=== PATIENT | male | born 1970 | race Caucasian/White ===

== ENCOUNTER 2019-06-03 15:57 | Emergency (ER) | payer SELFPAY ==
[~2019-06-03] VITALS: Ht 180.3 cm; Wt 81.8 kg
[2019-06-03 16:27] VITALS: Ht 180.3 cm; Wt 81.8 kg
[2019-06-03] MEDS ORDERED: AUGMENTIN 875-11 TAB PO (17:21)
[2019-06-03] MEDS ORDERED: ZESTRIL10 MG PO (17:21)
[2019-06-03 17:33] VITALS: BP 196/102
== END 2019-06-03 17:30 | disposition home or self-care (01) ==
LOC: D.ER 15:57
DX: J01.90 Acute sinusitis, unspecified (principal); I10 Essential (primary) hypertension

== ENCOUNTER 2019-07-19 13:30 | Inpatient (IN) | payer MEDICAID ==
[~2019-07-19] VITALS: Ht 180.3 cm; Wt 81.5 kg
[2019-07-19] VITALS (24 sets, daily range): BP systolic 118–222; BP diastolic 64–111; Ht 180.3 cm; Wt 81.5 kg
[~2019-07-19 13:30] MED LIST: AUGMENTIN 875-11 TAB PO; ZESTRIL10 MG PO
[2019-07-19 14:42] LABS: CALC OSMOLALITY 275 mosm/kg (275-300); CALCIUM 9.1 mg/dL (8.5-10.1); CARBON DIOXIDE 29.5 mmol/L (21.0-32.0); CHLORIDE - SERUM 103 mmol/L (98-107); CREATININE - SERUM 0.8 mg/dL (0.6-1.3); GLUCOSE 89 mg/dL (74-106); POTASSIUM - SERUM 3.9 mmol/L (3.5-5.1); SODIUM 139 mmol/L (136-145); UREA NITROGEN 11 mg/dL (7-18); eGFR NON AFRICAN AMERICAN > 90 mL/min (90-120)
[2019-07-19 14:47] LABS: BASOPHILS 0.4 % (0-2); EOSINOPHILS 1.1 % (0-7); HEMATOCRIT 39.7 % (42.0-54.0); HEMOGLOBIN 14.1 g/dL (13.5-17.5); IMMATURE GRANULOCYTES 0.3 % (0-5); LYMPHOCYTES 33.1 % (15-50); MCH 31.8 pg (26.0-34.0); MCHC 35.5 g/dL (31.0-37.0); MCV 89.4 fL (80.0-100.0); MEAN PLATELET VOLUME 9.9 fL (7.4-10.4); MONOCYTES 5.2 % (2-11); NEUTROPHILS 59.9 % (40-80); PLATELET COUNT 215 10x3/uL (130-400); RBC 4.44 10x6/uL (4.20-6.10); RDW 13.2 % (11.5-14.5); WBC 9.3 10x3/uL (4.8-10.8)
[2019-07-19 14:49] LABS: ALBUMIN 4.1 g/dL (3.4-5.0); ALKALINE PHOSPHATASE 73 U/L (46-116); ALT (SGPT) 30 U/L (10-68); BILIRUBIN - TOTAL 0.34 mg/dL (0.2-1.3); MAGNESIUM - SERUM 1.9 mg/dL (1.8-2.4); PROTEIN - SERUM 7.8 g/dL (6.4-8.2)
[2019-07-19 15:09] LABS: UDS - AMPHET NEGATIVE QUAL (NEGATIVE); UDS - BARB NEGATIVE QUAL (NEGATIVE); UDS - BENZO NEGATIVE QUAL (NEGATIVE); UDS - COCAINE NEGATIVE QUAL (NEGATIVE); UDS - OPIATE NEGATIVE QUAL (NEGATIVE); UDS - PCP NEGATIVE QUAL (NEGATIVE); UDS - THC NEGATIVE QUAL (NEGATIVE)
[2019-07-19 15:10] LABS: APPEARANCE CLEAR (CLEAR); BILIRUBIN NEGATIVE (NEGATIVE); COLOR YELLOW (YELLOW); GLUCOSE NEGATIVE (NEGATIVE); KETONE NEGATIVE (NEGATIVE); NITRITE NEGATIVE (NEGATIVE); PROTEIN NEGATIVE (NEGATIVE); UROBILINOGEN NORMAL (NORMAL)
[2019-07-19 15:30] LABS: APTT 41.8 SECONDS (22.8-39.4); INR 0.96 (0.85-1.17); PROTIME 12.3 SECONDS (11.6-15.0)
[2019-07-19 15:47] LABS: CKMB 0.9 U/L (0.0-3.6); CREATINE KINASE 80 UL (21-232)
[2019-07-19 15:48] LABS: TROPONIN-I < 0.017 ng/mL (0.000-0.060)
--- NOTE | 2019-07-19 18:27 | NUR ---
PT RECEIVED TO ROOM. ALERT ORIENTED, CONVERSANT. AMBULATORY AND STEADY. ON CARDINE GTT. PLACED ON BEDSIDE MONITORING. PROVIDED WITH SANDWICH
--- NOTE | 2019-07-19 19:00 | NUR ---
REPORT RECIEVED, SHIFT ASSESSMENT COMPLETE, PT IS ALERT AND ORIENTED, HAVING AUDITORY HALLUCINATIONS, ALL PPP, VSS, CALL LIGHT IN REACH
--- NOTE | 2019-07-19 21:00 | NUR ---
NO VISITORS AT THIS TIME, WILL CON'T TO MONITOR
--- NOTE | 2019-07-19 23:15 | NUR ---
REASSESSMENT COMPLETE, NO CHANGES NOTED, PT RESTING COMFORTABLY AT THIS TIME,
[2019-07-20] VITALS (17 sets, daily range): BP systolic 116–167; BP diastolic 64–96
--- NOTE | 2019-07-20 01:00 | NUR ---
PT RESTING AT THIS TIME, WILL CON'T TO MONITOR
--- NOTE | 2019-07-20 03:09 | NUR ---
REASSESSMENT COMPLETE, NO CHANGES NOTED, WILL CON'T TO MONITOR
[2019-07-20 03:57] LABS: BASOPHILS 0.3 % (0-2); EOSINOPHILS 1.9 % (0-7); HEMATOCRIT 39.9 % (42.0-54.0); HEMOGLOBIN 13.9 g/dL (13.5-17.5); IMMATURE GRANULOCYTES 0.2 % (0-5); LYMPHOCYTES 30.9 % (15-50); MCH 31.4 pg (26.0-34.0); MCHC 34.8 g/dL (31.0-37.0); MCV 90.1 fL (80.0-100.0); MEAN PLATELET VOLUME 10.1 fL (7.4-10.4); MONOCYTES 7.5 % (2-11); NEUTROPHILS 59.2 % (40-80); PLATELET COUNT 216 10x3/uL (130-400); RBC 4.43 10x6/uL (4.20-6.10); RDW 13.2 % (11.5-14.5); WBC 9.6 10x3/uL (4.8-10.8)
[2019-07-20 04:23] LABS: ALBUMIN 3.8 g/dL (3.4-5.0); ALKALINE PHOSPHATASE 69 U/L (46-116); ALT (SGPT) 27 U/L (10-68); BILIRUBIN - TOTAL 0.36 mg/dL (0.2-1.3); CALC OSMOLALITY 283 mosm/kg (275-300); CALCIUM 9.1 mg/dL (8.5-10.1); CHLORIDE - SERUM 105 mmol/L (98-107); GLUCOSE 87 mg/dL (74-106); POTASSIUM - SERUM 3.5 mmol/L (3.5-5.1); PRO BNP 95 pg/mL (0-125); PROTEIN - SERUM 7.2 g/dL (6.4-8.2); SODIUM 142 mmol/L (136-145); eGFR NON AFRICAN AMERICAN 84 mL/min (90-120)
[2019-07-20 04:30] LABS: UREA NITROGEN 17 mg/dL (7-18)
--- NOTE | 2019-07-20 05:20 | NUR ---
PT RESTING AT THIS TIME, VSS, CALL LIGHT IN REACH
--- NOTE | 2019-07-20 07:32 | NUR ---
PT SLEEPING AT SHIFT CHANGE/ASSESSMENT. WOKE TO TOUCH. DOES NOT HAVE HEARING AIDS IN. DENIES PAIN. VSS. OFF CARDENE GTT.
--- NOTE | 2019-07-20 09:18 | NUR ---
PT RESTING IN BED AT THIS TIME. BREAKFAST TRAY CONSUMED. PT DENIES ANY ADDITIONAL NEEDS. CALL LIGHT IN REACH.
--- NOTE | 2019-07-20 10:54 | NUR ---
PT HOME MEDICATION AND PHARMACY PREFERENCE UDATED. PT SAYS DOESN'T HAVE REGULAR MAINTENANCE MEDICATIONS, JUST WHATEVER THE DOCTOR PRESCRIBES WHEN COMES IN FOR HIGH BLOOD PRESSURE.
--- NOTE | 2019-07-20 13:40 | NUR ---
PT RESTING QUIETLY IN BED WATCHING TELEVISION.
--- NOTE | 2019-07-20 14:25 | NUR ---
PT ESCORTED VIA WHEELCHAIR TO ROOM 2123. PT HAS HIS WALLET AND BOTH HEARING AIDS.
--- NOTE | 2019-07-20 14:27 | NUR ---
ARRIVE TO ROOM VIA WHEELCHAIR FROM ICU. AMBULATES TO BED. GAIT STEADY. BP-167/91. ALERT AND ORIENTED X4. REQUESTING TO TAKE SHOWER. CONTINUE PLAN OF CARE AND SAFETY PRECAUTIONS.
--- NOTE | 2019-07-20 14:42 | MORECARE ---
CASE MANAGEMENT DISCHARGE SUMMARY PATIENT: KELSY PALOMARES UNIT: [id number] ADM DATE: 07/19/19 AGE: 48 : 68 SEX: M ROOM/BED: D.2124 AUTHOR: TOVA,DOC PHYSICIAN: REFERRING PHYSICIAN: MCKINLEY MARIE MD DATE OF SERVICE: 07/20/19 Discharge Plan Patient Name: KELSY PALOMARES Facility: [facility]:[place] : 1970 Planned Disposition: Anticipated Discharge Date: Discharge Date: Expected LOS: Initial Reviewer: [email or web address] Initial Review Date: 07/20/2019 Generated: 07/20/19 3:42 pm Comments DCP- Discharge Planning Updated by [email or web address]: Gosia Rivera on 07/20/19 1:[address] Patient Name: KELSY PALOMARES Admission Status: ER Accout number: [id number] Admission Date: 07-19-2019 : 1970 Admission Diagnosis: Attending: MCKINLEY MARIE Current LOS: 1 Anticipated DC Date: Planned Disposition: Primary Insurance: MEDICAID [place] Discharge Planning Comments: CM met with patient he plans to return to rehab [facility] with Daniella Suarez [phone]. Patient denies any discharge needs. CM will continue to follow and assist as needed with discharge planning / needs Automation Tender: Gosia Rivera DCPIA - Discharge Planning Initial Assessment Updated by [email or web address]: Gosia Rivera on 07/20/19 2:37 pm * Is the patient Alert and Oriented? Yes * How many steps to enter\exit or inside your home? * PCP NO PCP * Pharmacy [facility] * Preadmission Environment Shelter * ADLs Independent * List name and contact numbers for known caregivers / representatives who currently or will assist patient after discharge: DANIELLA SUAREZ - [phone] * Verbal permission to speak to the caregivers and representatives has been obtained from the patient. Yes * Community resources currently utilized None * Additional services required to return to the preadmission environment? No * Can the patient safely return to the preadmission environment? Yes * Has this patient been hospitalized within the prior 30 days at any hospital? No Patient Name: KELSY PALOMARES Page [id number] at 1442 All edits/amendments must be made on the electronic document DICTATION DATE: 07/20/191441 PORTAINER OPERATOR: MANISH 07/20/191441 RPT#: [id number] DC DATE: STATUS: ADM IN [facility] [address] [place] [address] END OF REPORT
--- NOTE | 2019-07-20 19:22 | NUR ---
RECEIVED UP IN BED WITH EYES OPEN AND TV ON. ALERT AND ORIENTED X4. UP AD MARGIE. IV TO LEFT AC SL.. LUNG SOUNDS CLEAR BILATERALLY. [place] AND WEARS HEARING AIDS BILATERALLY. DENIES ANY NEEDDS AT THIS TIME.
[2019-07-21] VITALS: BP 144/84
[2019-07-21 04:00] VITALS: BP 180/88
[2019-07-21 06:25] LABS: BASOPHILS 0.4 % (0-2); EOSINOPHILS 2.9 % (0-7); HEMATOCRIT 37.6 % (42.0-54.0); HEMOGLOBIN 12.8 g/dL (13.5-17.5); IMMATURE GRANULOCYTES 0.1 % (0-5); MCH 30.9 pg (26.0-34.0); MCV 90.8 fL (80.0-100.0); MEAN PLATELET VOLUME 10.2 fL (7.4-10.4); NEUTROPHILS 47.6 % (40-80); PLATELET COUNT 200 10x3/uL (130-400); RBC 4.14 10x6/uL (4.20-6.10); RDW 13.4 % (11.5-14.5); WBC 8.6 10x3/uL (4.8-10.8)
[2019-07-21 06:38] LABS: CALC OSMOLALITY 291 mosm/kg (275-300); CALCIUM 8.4 mg/dL (8.5-10.1); CARBON DIOXIDE 28.5 mmol/L (21.0-32.0); CHLORIDE - SERUM 109 mmol/L (98-107); CREATININE - SERUM 0.9 mg/dL (0.6-1.3); GLUCOSE 87 mg/dL (74-106); MAGNESIUM - SERUM 1.9 mg/dL (1.8-2.4); SODIUM 145 mmol/L (136-145); eGFR NON AFRICAN AMERICAN > 90 mL/min (90-120)
[2019-07-21 06:40] LABS: UREA NITROGEN 23 mg/dL (7-18)
--- NOTE | 2019-07-21 07:25 | NUR ---
ASSESSMENT DONE. DENIES NEEDS
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
[2019-07-21 08:42] VITALS: BP 145/69
[2019-07-21] MEDS ORDERED: SEROQUEL25 MG PO (09:43)
--- NOTE | 2019-07-21 10:04 | NUR ---
PATIENT HAS NOT HAD A FLU SHOT UPON ADMIT. WHEN ASKED, HE STATES HE WOULD LIKE ONE. ALSO, TOBACCO QUITLINE GIVEN TO NURSE TO HAVE PATIENT FILL OUT UPON DISCHARGE.
--- NOTE | 2019-07-21 13:50 | NUR ---
DC GIVEN TO PT
[2019-07-21 14:05] VITALS: BP 179/97
--- NOTE | 2019-07-21 15:25 | NUR ---
DC HOME PERSONAL CAR
--- NOTE | 2019-07-22 07:08 | MORECARE ---
CASE MANAGEMENT DISCHARGE SUMMARY PATIENT: KELSY PALOMARES UNIT: [id number] ADM DATE: 07/19/19 AGE: 48 : 68 SEX: M ROOM/BED: D.2124 AUTHOR: TOVA,DOC PHYSICIAN: REFERRING PHYSICIAN: MCKINLEY MARIE MD DATE OF SERVICE: 07/22/19 Discharge Plan Patient Name: KELSY PALOMARES Facility: [facility]:[place] : 1970 Planned Disposition: Home Anticipated Discharge Date: 07/21/19 Discharge Date: 07/21/2019 Expected LOS: 2 Initial Reviewer: [email or web address] Initial Review Date: 07/20/2019 Generated: 07/22/19 8:08 am Comments DCP- Discharge Planning Updated by [email or web address]: Gosia Rivera on 07/20/19 1:[address] Patient Name: KELSY PALOMARES Admission Status: ER Accout number: [id number] Admission Date: 07-19-2019 : 1970 Admission Diagnosis: Attending: MCKINLEY MARIE Current LOS: 1 Anticipated DC Date: Planned Disposition: Primary Insurance: MEDICAID [place] Discharge Planning Comments: CM met with patient he plans to [facility] with Daniella Suarez [phone]. Patient denies any discharge needs. CM will continue to follow and assist as needed with discharge planning / needs Staff Technologist: Gosia Rivera DCPIA - Discharge Planning Initial Assessment Updated by [email or web address]: Gosia Rivera on 07/20/19 2:37 pm * Is the patient Alert and Oriented? Yes * How many steps to enter\exit or inside your home? * PCP NO PCP * Pharmacy [facility] * Preadmission Environment Longterm * ADLs Independent * List name and contact numbers for known caregivers / representatives who currently or will assist patient after discharge: DANIELLA SUAREZ - [phone] * Verbal permission to speak to the caregivers and representatives has been obtained from the patient. Yes * Community resources currently utilized None * Additional services required to return to the preadmission environment? No * Can the patient safely return to the preadmission environment? Yes * Has this patient been hospitalized within the prior 30 days at any hospital? No Last DP export: 07/20/19 1:42 Patient Name: KELSY PALOMARES Page 96024 at 0708 All edits/amendments must be made on the electronic document DICTATION DATE: 07/22/19707 PHOTOVOLTAIC INSTALLER: MANISH 07/22/1908 RPT#: [id number] DC DATE:07/21/19 STATUS: DIS IN [facility] [address] [place] [address] END OF REPORT
== END 2019-07-21 15:26 | disposition home or self-care (01) | DRG 78 ==
LOC: D.ER 13:30 → D.ICU 17:31 → D.M2 07-20 14:25
PROVIDERS: Family Medicine; ADMIT Internal Medicine Nephrology; ATTEND Internal Medicine Nephrology
DX: I67.4 Hypertensive encephalopathy (principal); F23 Brief psychotic disorder; I16.1 Hypertensive emergency; N17.9 Acute kidney failure, unspecified; F17.203 Nicotine dependence unspecified, with withdrawal; D64.9 Anemia, unspecified